=== PATIENT | male | born 1960 | race Caucasian/White ===

== ENCOUNTER 2022-09-11 17:50 | Emergency (ER) | payer BC ==
[~2022-09-11] VITALS: Ht 180.3 cm; Wt 58.9 kg
[2022-09-11 18:22] LABS: BASOPHILS % (AUTO) 0 % (0-10); EOSINOPHILS # (AUTO) 0.1 10^3/uL (0.0-0.3); EOSINOPHILS % (AUTO) 1 % (0-10); HEMATOCRIT 43 % (40-54); HEMOGLOBIN 16.3 g/dL (13.3-17.7); LYMPHOCYTES # (AUTO) 2.6 10^3/uL (1.0-4.0); LYMPHOCYTES % (AUTO) 22 % (12-44); MEAN CORPUSCULAR HEMOGLOBIN 37 pg (25-34); MEAN CORPUSCULAR HGB CONC 38 g/dL (32-36); MEAN CORPUSCULAR VOLUME 97 fL (80-99); MEAN PLATELET VOLUME 10.2 fL (9.0-12.2); MONOCYTES % (AUTO) 8 % (0-12); NEUTROPHILS # (AUTO) 8.3 10^3/uL (1.8-7.8); NEUTROPHILS % (AUTO) 69 % (42-75); PLATELET COUNT 289 10^3/uL (130-400); WHITE BLOOD COUNT 12.1 10^3/uL (4.3-11.0)
[2022-09-11 18:29] LABS: INR 0.9 (0.8-1.4); PROTHROMBIN TIME PATIENT 12.6 SEC (12.2-14.7)
[2022-09-11] MEDS ORDERED: LIDOCAINE 1% INJ 20 ML VIAL INJ ONE (18:30)
[2022-09-11] MEDS ORDERED: TETANUS,DIPTH,PERTUSS P/F (BOOSTRIX) 0.5 ML VIAL IM ONE (18:30)
[2022-09-11] MEDS ORDERED: ceFAZolin INJECTION 1,000 MG VIAL IV ONE (18:30)
[2022-09-11 18:35] LABS: ALANINE AMINOTRANSFERASE 39 U/L (0-55); ALBUMIN 4.7 GM/DL (3.2-4.5); ALKALINE PHOSPHATASE 76 U/L (40-136); BILIRUBIN,TOTAL 0.5 MG/DL (0.1-1.0); BUN/CREATININE RATIO 18; CALCIUM 9.4 MG/DL (8.5-10.1); CARBON DIOXIDE 28 MMOL/L (21-32); CHLORIDE 101 MMOL/L (98-107); CREATININE SERUM 0.73 MG/DL (0.60-1.30); GFR ESTIMATED 105; GLUCOSE 81 MG/DL (70-105); POTASSIUM 4.4 MMOL/L (3.6-5.0); SODIUM 140 MMOL/L (135-145); TOTAL PROTEIN 7.4 GM/DL (6.4-8.2)
[2022-09-11] MEDS ORDERED: fentaNYL INJ 100 MCG/2 ML AMP IVP ONE (18:45)
[2022-09-11] MEDS ORDERED: MUPIROCIN 2% OINT 22 GM (BACTROBAN) TUBE NSEACH STA (18:54)
--- NOTE | 2022-09-11 19:10 | Diagnostic Imaging Report ---
EXAMINATION: Left hand radiographs. EXAM DATE: 09/11/2022 7:06 PM COMPARISON: None available. HISTORY: Left hip pain after finger amputation. TECHNIQUE: 3 views. FINDINGS: There is amputation of the distal second digit involving the majority of the middle phalanx and the entirety of the distal phalanx. There is a small osseous fragment within the remaining soft tissues distally. The interphalangeal joint is preserved proximally. No other acute fracture, dislocation or destructive osseous process. IMPRESSION: Acute amputation of the distal left second finger involving the majority of the middle and the entirety of the distal second phalanx. There is a small osseous fragment within the soft tissues distally. Dictated by: Dictated on workstation # [id number]
--- NOTE | 2022-09-11 19:37 | ED Upper Extremity ---
General Chief Complaint: Trauma-Non Activation Stated Complaint: L INDEX LAC Nursing Triage Note: Patient presents to the ED with c/o left index finger injury. Reports that he was cutting wood with a table saw when the wood kicked back and then he is unsure how his finger came into contact with the saw. States that he has been drinking and admits to consuming 6 to 7 beers throught the day. Distal amputation of left index finger noted. Source: patient, family Exam Limitations: no limitations History of Present Illness Date Seen by Provider: Sep 11, 2022 Time Seen by Provider: 18:00 Initial Comments This 61-year-old male presents to the emergency room with amputation of the left index finger from a table saw accident. He is intoxicated and admits to drinking several beers today. He reports he typically drinks about 9 beers daily after work. Bleeding is controlled. There is nearly complete amputation of the middle and distal phalanx on the left index finger. Patient denies any other injury. He does not bring the amputated tissues in with him. He presumes his pet chicken in the shop ate it. Location Injury Occurred: Home Onset: just prior to arrival Allergies and Home Medications Allergies Coded Allergies: No Known Drug Allergies (Unverified , 09/11/22) Patient Home Medication List Home Medication List Reviewed: Yes Oxycodone HCl/Acetaminophen (Percocet 5-325 mg Tablet) 1 Each Tablet, 1 TAB PO Q4H PRN for PAIN-BREAKTHROUGH Prescribed by: SOFÍA ROSAS on 09/11/221940 Sulfamethoxazole/Trimethoprim (Bactrim Ds Tablet) 1 Each Tablet, 1 EACH PO BID Prescribed by: SOFÍA ROSAS on 09/11/221940 Review of Systems Constitutional: see HPI (Intoxicated but alert and oriented) EENTM: no symptoms reported Respiratory: no symptoms reported Cardiovascular: no symptoms reported Gastrointestinal: no symptoms reported Genitourinary: no symptoms reported Musculoskeletal: see HPI Skin: see HPI Psychiatric/Neurological: See HPI Past Vezdykr-Pwwfqh-Lsrwdf Hx Patient Social History Tobacco Use?: Yes Smokeless Tobacco Frequency: Current Everyday User Substance use?: No Alcohol Use?: Yes Alcohol type: Beer Alcohol Frequency: Daily Pt feels they are or have been: No Immunizations Up To Date First/Initial COVID19 Vaccinat: Denies Past Medical History Surgery/Hospitalization HX: Bipolar Surgeries: No Respiratory: No Cardiac: No Neurological: Yes TIA Genitourinary: No Gastrointestinal: No Musculoskeletal: No Endocrine: No HEENT: No Cancer: No Psychosocial: Yes (Alcohol dependence) Bipolar Physical Exam Vital Signs Vital Signs - First Documented 09/11/22 17:52 Temp 35.7 Pulse 71 Resp 16 B/P (MAP) 169/98 (121) Pulse Ox 100 O2 Delivery Room Air Capillary Refill : Less Than 3 Seconds Height, Weight, BMI Height: '" Weight: lbs. oz. kg; 18.00 BMI Method: General Appearance: WD/WN, mild distress, thin, other (Intoxicated) HEENT: normal ENT inspection Neck: normal inspection Cardiovascular: regular rate, rhythm, no edema, no murmur Respiratory: lungs clear, normal breath sounds, no respiratory distress Elbow/Forearm: normal inspection, no evidence of injury, normal ROM, Left Wrist: Yes normal inspection, Yes non-tender, Yes no evidence of injury, Yes normal ROM Hand: normal ROM, Left (Amputation of the left index finger at the PIP joint with flap of tissue remnant remaining. Bleeding is minimal. Bone is exposed.) Neurologic/Psychiatric: no motor/sensory deficits, alert, oriented x 3, other (Intoxicated) Skin: normal color, warm/dry, other (Amputation as above) Procedures/Interventions Wound Location: Upper Extremities Other Wound Location Traumatic amputation of left index finger at the PIP joint Progress Base of the left index finger was cleaned with chlorhexidine wipes. Digital block was placed with approximately 4 mL lidocaine. Wound was sprayed down with lidocaine and local injection of approximately 3 mL was provided around the wound. Wound was then irrigated and cleaned with saline with chlorhexidine. Wound was then carefully dressed with Xeroform coated in Bactroban. This was then covered with gauze roll. There was no attempt at closure of the wound as patient is going to surgery in the morning. Progress/Results/Core Measures Results/Orders Lab Results Laboratory Tests Test 09/11/22 18:18 Range/Units White Blood Count 12.1 H 4.3-11.0 10^3/uL Red Blood Count 4.40 4.30-5.52 10^6/uL Hemoglobin 16.3 13.3-17.7 g/dL Hematocrit 43 40-54 % Mean Corpuscular Volume 97 80-99 fL Mean Corpuscular Hemoglobin 37 H 25-34 pg Mean Corpuscular Hemoglobin Concent 38 H 32-36 g/dL Red Cell Distribution Width 12.7 10.0-14.5 % Platelet Count 289 130-400 10^3/uL Mean Platelet Volume 10.2 9.0-12.2 fL Immature Granulocyte % (Auto) 0 % Neutrophils (%) (Auto) 69 42-75 % Lymphocytes (%) (Auto) 22 12-44 % Monocytes (%) (Auto) 8 0-12 % Eosinophils (%) (Auto) 1 0-10 % Basophils (%) (Auto) 0 0-10 % Neutrophils # (Auto) 8.3 H 1.8-7.8 10^3/uL Lymphocytes # (Auto) 2.6 1.0-4.0 10^3/uL Monocytes # (Auto) 1.0 0.0-1.0 10^3/uL Eosinophils # (Auto) 0.1 0.0-0.3 10^3/uL Basophils # (Auto) 0.0 0.0-0.1 10^3/uL Immature Granulocyte # (Auto) 0.0 0.0-0.1 10^3/uL Prothrombin Time 12.6 12.2-14.7 SEC INR Comment 0.9 0.8-1.4 Activated Partial Thromboplast Time 30 24-35 SEC Sodium Level 140 135-145 MMOL/L Potassium Level 4.4 3.6-5.0 MMOL/L Chloride Level 101 98-107 MMOL/L Carbon Dioxide Level 28 21-32 MMOL/L Anion Gap 11 5-14 MMOL/L Blood Urea Nitrogen 13 7-18 MG/DL Creatinine 0.73 0.60-1.30 MG/DL Estimat Glomerular Filtration Rate 105 BUN/Creatinine Ratio 18 Glucose Level 81 70-105 MG/DL Calcium Level 9.4 8.5-10.1 MG/DL Corrected Calcium 8.5-10.1 MG/DL Total Bilirubin 0.5 0.1-1.0 MG/DL Aspartate Amino Transf (AST/SGOT) 38 H 5-34 U/L Alanine Aminotransferase (ALT/SGPT) 39 0-55 U/L Alkaline Phosphatase 76 40-136 U/L Total Protein 7.4 6.4-8.2 GM/DL Albumin 4.7 H 3.2-4.5 GM/DL Serum Alcohol 202 H <10 MG/DL My Orders Orders - SOFÍA VERA MD Hand 3 View Left (09/11/22 18:16) Alcohol (09/11/22 18:16) Cbc With Automated Diff (09/11/22 18:16) Comprehensive Metabolic Panel (09/11/22 18:16) Protime With Inr (09/11/22 18:16) Partial Thromboplastin Time (09/11/22 18:16) Ed Iv/Invasive Line Start (09/11/22 18:16) Dipht,Pertuss(Acell),Tet Adult (Boostrix (09/11/22 18:30) Lidocaine 1% Inj 20 Ml (Xylocaine 1% Inj (09/11/22 18:30) Cefazolin Injection (Ancef Injection) (09/11/22 18:30) Fentanyl Inj (Sublimaze Injection) (09/11/22 18:45) Mupirocin Ointment (Bactroban Ointment (09/11/22 18:54) Sulfamethoxazole/Trimet Ds Tab (Bactrim (09/11/22 19:45) Rx-Oxycodone/Apap 5-325 Mg (Rx-Percocet (09/11/22 19:45) Rx-Lorazepam (Rx-Ativan) (09/11/22 19:42) Medications Given in ED Current Medications Medications Dose Ordered Sig/Eusebia Route Start Time Stop Time Status Last Admin Dose Admin Cefazolin Sodium 1,000 mg ONCE ONCE IV 09/11/22 18:30 09/11/22 18:31 DC 09/11/22 18:45 1,000 MG Diphtheria/ Tetanus/Acell Pertussis 0.5 ml ONCE ONCE IM 09/11/22 18:30 09/11/22 18:31 DC 09/11/22 18:53 0.5 ML Fentanyl Citrate 75 mcg ONCE ONCE IVP 09/11/22 18:45 09/11/22 18:46 DC 09/11/22 18:45 75 MCG Lidocaine HCl 20 ml ONCE ONCE INJ 09/11/22 18:30 09/11/22 18:31 DC 09/11/22 18:30 20 ML Oxycodone/ Acetaminophen 1 ea Q4H PRN PO 09/11/22 19:45 09/11/22 19:56 DC 09/11/22 19:51 1 EA Trimethoprim/ Sulfamethoxazole 1 ea ONCE ONCE PO 09/11/22 19:45 09/11/22 19:46 DC 09/11/22 19:51 1 EA Vital Signs/I&O 09/11/22 09/11/22 17:52 19:56 Temp 35.7 Pulse 71 76 Resp 16 16 B/P (MAP) 169/98 (121) 143/92 Pulse Ox 100 99 O2 Delivery Room Air Room Air Blood Pressure Mean: 121 Progress Progress Note : Progress Note Patient's pain was treated with fentanyl. Further anesthesia was provided with digital block and a localized injection. Wound was cleaned and dressed. Bleeding was controlled. I discussed the case with Dr. Romero who would like to take the patient to surgery in the morning. Tetanus booster was administered. Antibiotic prophylaxis was provided with Ancef 1 g IV and Bactrim orally. Percocet was dispensed for pain control through the night. Ativan was dispensed to control any withdrawal symptoms he may have since he will not be able to eat or drink in preparation for the surgery. See discharge instructions for further discussion. Diagnostic Imaging Diagonstic Imaging: Xray Plain Films/CT/US/NM/MRI: hand Comments Hand x-ray viewed by me and report reviewed. See report below: NAME: PARKER [facility] REC#: [id number] PT STATUS: REG ER : 1960 PHYSICIAN: SOFÍA VERA MD ADMIT DATE: 09/11/22/ER FS Signed Date of Exam:09/11/22 HAND 3 VIEW LEFT EXAMINATION: Left hand radiographs. EXAM DATE: 09/11/2022 7:06 PM COMPARISON: None available. HISTORY: Left hip pain after finger amputation. TECHNIQUE: 3 views. FINDINGS: There is amputation of the distal second digit involving the majority of the middle phalanx and the entirety of the distal phalanx. There is a small osseous fragment within the remaining soft tissues distally. The interphalangeal joint is preserved proximally. No other acute fracture, dislocation or destructive osseous process. IMPRESSION: Acute amputation of the distal left second finger involving the majority of the middle and the entirety of the distal second phalanx. There is a small osseous fragment within the soft tissues distally. Dictated by: Dictated on workstation # [id number] Dict: 09/11/221906 Trans: 09/11/221913 [facility] [id number] Interpreted by: SUMEET PRICE DO Electronically signed by: SUMEET PRICE DO 09/11/221913 Departure Impression Primary Impression: Traumatic amputation of finger Qualified Codes: S68.119A - Complete traumatic metacarpophalangeal amputation of unspecified finger, initial encounter Additional Impression: Alcohol intoxication Qualified Codes: F10.929 - Alcohol use, unspecified with intoxication, unspecified Disposition: 01 HOME, SELF-CARE Condition: Improved Departure-Patient Inst. Decision time for Depature: 19:39 Referrals: AZEEM PATEL MD (PCP/Family) Primary Care Physician Patient Instructions: ALCOHOL AND SUBSTANCE ABUSE, Alcohol Intoxication ED, Amputation of the Finger or Fingertip (DC) Add. Discharge Instructions: Keep your left hand clean and dry. Keep the dressing on until it is removed for surgery. Elevate to the level of your heart or slightly above to help prevent bleeding. Expect some oozing of blood to continue. This may bleed through the dressing. If it it has bled completely through the dressing such that there is saturation or blood dripping off the dressing, return to the emergency room for reevaluation. Present to the emergency room in [place] tomorrow morning at approximately 8:[address] Romero is the general surgeon who will be performing your surgery. Do not eat or drink anything after midnight. If you must take your pain medication after midnight, do so with as little water as possible. The Ativan (lorazepam) has been provided to prevent alcohol withdraw. If you are experiencing agitation, tremors, hallucinations, or other symptoms of alcohol withdraw, take the Ativan every 4 hours as needed. Between midnight and surgery, you may dissolve the tablet by placing it in your cheek and rubbing. After surgery you may take ibuprofen up to 600 mg every 6 hours as needed for primary pain control. Add to the Percocet as prescribed for pain not controlled by ibuprofen. Complete the antibiotics as prescribed. Do not operate any machinery, power tools, vehicles, or sharp and tools while under the influence of alcohol. Work toward quitting alcohol completely. A lis susan of the help of support services such as alcoholics anonymous (AA), your [facility] mental health office, your primary care physician, etc. Do not abruptly stop alcohol consumption as this may cause dangerous with or life-threatening withdrawals including seizures. Gradually taper down your alcohol consumption to prevent withdraw or use medications provided by your physician to prevent withdrawal. See resources attached. All discharge instructions reviewed with patient and/or family. Voiced understanding. Scripts Oxycodone HCl/Acetaminophen (Percocet 5-325 mg Tablet) 1 Each Tablet 1 TAB PO Q4H PRN for PAIN-BREAKTHROUGH MDD 6 TABS, #20 TAB Prov: SOFÍA VERA MD 09/11/22 Sulfamethoxazole/Trimethoprim (Bactrim Ds Tablet) 1 Each Tablet 1 EACH PO BID, #14 TAB Prov: SOFÍA VERA MD 09/11/22 Copy Copies To 1: NESS ROMERO JOSHUA T MD Sep 11, 2022 19:37
[2022-09-11] MEDS ORDERED: OXYC1TAB87 PO (19:41)
[2022-09-11] MEDS ORDERED: SULF1TAB38 PO (19:41)
[2022-09-11] MEDS ORDERED: RX-LORAZEPAM (ATIVAN) 0.5 MG TAB PPK#4 PO STA (19:42)
[2022-09-11] MEDS ORDERED: TRIM/SULFAMETH 160/800 (SEPTRA DS) TAB PO ONE (19:45)
[2022-09-11] MEDS ORDERED: RX-OXYCODONE/APAP 5-325 MG #4 TAB PK PO PRN (19:45)
[2022-09-11 19:56] VITALS: BP 143/92
[2022-09-12] MEDS ORDERED: ESCI-2 PO (08:54)
[2022-09-12] MEDS ORDERED: MIRT-69 PO (08:54)
[2022-09-12] MEDS ORDERED: DIVA-76 PO (08:55)
== END 2022-09-11 19:53 | disposition home or self-care (01) ==
LOC: ER FS 17:52
DX: S68.111A Complete traumatic metacarpophalangeal amputation of left index finger, initial encounter (principal); F10.229 Alcohol dependence with intoxication, unspecified; F17.200 Nicotine dependence, unspecified, uncomplicated; Y90.7 Blood alcohol level of 200-239 mg/100 ml; Z28.310 Unvaccinated for COVID-19; W27.0XXA Contact with workbench tool, initial encounter; Y93.89 Activity, other specified
CPT/HCPCS: 36415; 73130; 80053; 85025; 85610; 85730; 99283; G0480; 80320; 90715

== ENCOUNTER 2022-09-12 08:18 | Day surgery (SDC) | payer BC ==
[~2022-09-12] VITALS: Ht 177.8 cm; Wt 58.2 kg
[2022-09-12] VITALS (9 sets, daily range): BP systolic 106–164; BP diastolic 90–108
[~2022-09-12 08:18] MED LIST: OXYC1TAB87 PO; SULF1TAB38 PO
[2022-09-12] MEDS ORDERED: BUPIVACAINE 0.25% 30 ML (SENSORCAINE) VIAL ONE (08:51)
[2022-09-12] MEDS ORDERED: MIRT-69 PO (08:54)
[2022-09-12] MEDS ORDERED: ESCI-2 PO (08:54)
[2022-09-12] MEDS ORDERED: DIVA-76 PO (08:55)
[2022-09-12] MEDS ORDERED: LACTATED RINGERS 1,000 ML IV PRN (09:00)
--- NOTE | 2022-09-12 09:06 | History & Physical-Surgical ---
History of Present Illness History of Present Illness Patient Consulted On(stanley/time) 09/12/22 09:01 Date Seen by Provider: Sep 12, 2022 Time Seen by Provider: 09:01 History of Present Illness Dexter is a 61y M who presented to the ED last night with amputation of the left index finger after a table saw accident. He admitted to drinking several beers at that time. The bleeding was controlled in the ED and lidocaine block was performed. He was not able to recover the amputated tissues. Today he is accompanied by his and reports pain at a 2/10 in severity of the left index finger. Denies CP, SOB, nausea, vomiting, STRATTON, abdominal pain. He does note having a cough for the past 2 weeks that produces clear phlegm but denies other viral symptoms. Denies having had anything to eat since yesterday, he has taken sips of water to take his daily medication. Last pain med was around 7 am this morning. 61 year old male using a table saw last night. Cut left index finger. Could not find the finger last night. Was intoxicated at the time. Bleeding was able to be controlled. Washed out and bandaged so could have surgery today. Patient pain controlled. Denies any other complaints. Denies n/v fever sweats chills shortness of breath or chest pain. Allergies and Home Medications Allergies Coded Allergies: morphine (Verified Allergy, Intermediate, 09/12/22) Patient Home Medication List Home Medication List Reviewed: Yes Divalproex Sodium (Divalproex Sodium) 500 Mg Tablet.dr, 500 MG PO DAILY Prescribed by: CARITO MULLIGAN on 09/12/22854 Last Action: New Order Escitalopram Oxalate (Escitalopram Oxalate) 10 Mg Tablet, 30 MG PO DAILY Prescribed by: CARITO MULLIGAN on 09/12/22853 Last Action: New Order Mirtazapine (Mirtazapine) 30 Mg Tablet, 15 MG PO HS Prescribed by: CARITO MULLIGAN on 09/12/22853 Last Action: New Order Oxycodone HCl/Acetaminophen (Percocet 5-325 mg Tablet) 1 Each Tablet, 1 TAB PO Q4H PRN for PAIN-BREAKTHROUGH Prescribed by: SOFÍA ROSAS on 09/11/221940 Sulfamethoxazole/Trimethoprim (Bactrim Ds Tablet) 1 Each Tablet, 1 EACH PO BID Prescribed by: SOFÍA ROSAS on 09/11/221940 Past Ctqqgsl-Pcytpl-Wegbmm Hx Patient Social History Smoking Status: Current Everyday Smoker Type Used: Cigarettes Alcohol Use?: Yes Surgeries History of Surgeries: Yes (hemorrhoidectomy) Respiratory History of Respiratory Disorde: No Cardiovascular History of Cardiac Disorders: No Neurological History of Neurological Disord: No Genitourinary History of Genitourinary Disor: No Gastrointestinal History of Gastrointestinal Di: Yes Gastrointestinal Disorders: Hemorrhoids Musculoskeletal History of Musculoskeletal Dis: No Endocrine History of Endocrine Disorders: No HEENT History of HEENT Disorders: No Cancer History of Cancer: No Psychosocial History of Psychiatric Problem: Yes Behavioral Health Disorders: Bipolar Integumentary History of Skin or Integumenta: No Reviewed Nursing Assessment Reviewed/Agree w Nursing PMH: Yes Family Medical History Significant Family History: No Pertinent Family Hx Review of Systems-General Constitutional: No chills, No diaphoresis EENTM: hearing loss (uses hearing aid, not currently wearing); No ear discharge Respiratory: cough; No dyspnea on exertion Cardiovascular: No chest pain, No edema Gastrointestinal: No abdominal pain, No nausea, No vomiting Genitourinary: No decreased output, No discharge Musculoskeletal: No back pain, No gout; other (left index finger pain) Skin: No change in color, No change in hair/nails Psychiatric/Neurological: Denies Anxiety, Denies Depressed All Other Systems Reviewed Negative Unless Noted: Yes (Negative excepted noted.) Physical Exam-General Problems Physical Exam Vital Signs Vital Signs - First Documented 09/12/22 08:40 Temp 36.7 Pulse 77 Resp 18 B/P (MAP) 163/90 (114) Pulse Ox 98 O2 Delivery Room Air Capillary Refill : General Appearance: WD/WN, no apparent distress, thin HEENT: PERRL/EOMI, normal ENT inspection Neck: non-tender, supple Respiratory: chest non-tender, no respiratory distress, no accessory muscle use Cardiovascular: regular rate, rhythm, no JVD Peripheral Pulses: 2+ Radial Pulses (R) (L brachial pulse 2+, unable to assess L radial d/t bandaged) Gastrointestinal: non tender, soft Rectal: deferred Back: normal inspection, no CVA tenderness Extremities: non-tender, no pedal edema, other (left index finger with distal amputation) Neurologic/Psychiatric: alert, oriented x 3 Skin: normal color, warm/dry, other (left index finger with skin flap from amputation.) Lymphatic: no adenopathy Data Review Radiology [facility], [place], [place] NAME: DEXTER [facility] REC#: [id number] PT STATUS: REG ER : 1960 PHYSICIAN: SOFÍA VERA MD ADMIT DATE: 09/11/22/ER FS Signed Date of Exam:09/11/22 HAND 3 VIEW LEFT EXAMINATION: Left hand radiographs. EXAM DATE: 09/11/2022 7:06 PM COMPARISON: None available. HISTORY: Left hip pain after finger amputation. TECHNIQUE: 3 views. FINDINGS: There is amputation of the distal second digit involving the majority of the middle phalanx and the entirety of the distal phalanx. There is a small osseous fragment within the remaining soft tissues distally. The interphalangeal joint is preserved proximally. No other acute fracture, dislocation or destructive osseous process. IMPRESSION: Acute amputation of the distal left second finger involving the majority of the middle and the entirety of the distal second phalanx. There is a small osseous fragment within the soft tissues distally. Dictated by: Dictated on workstation # [id number] Dict: 09/11/221906 Trans: 09/11/221913 [facility] [id number] Interpreted by: SUMEET PRICE DO Electronically signed by: SUMEET PRICE DO 09/11/221913 Assessment/Plan Assessment/Plan Admission Diagonsis Traumatic amputation of left index finger above the MIP joint ETOH abuse- daily 8-9 beers Bipolar. Admission Status: Other (Same Day Surgery) Assessment/Plan traumatic amputation of left index finger above the MIP joint bipolar disorder alcohol dependence xray with distal left 2nd finger, majority of the middle and entire distal phalanx with a small osseous fragment within the soft tissue distally to surgery this morning pt consented. discussed risks and benefits of procedure and pt agrees traumatic amputation of left index finger above the MIP joint bipolar disorder alcohol dependence xray with distal left 2nd finger, majority of the middle and entire distal phalanx with a small osseous fragment within the soft tissue distally to surgery this morning for partial amputation left index finger pt consented. discussed risks and benefits of procedure and pt agrees Supervisory-Addendum Brief Verification & Attestation Participated in pt care: history, MDM, physical Personally performed: exam, history, MDM, supervision of care Care discussed with: Medical Student Procedures: n/a Results interpretation: Verified all documentation Verification and Attestation of Medical Student E/M Service A medical student performed and documented this service in my presence. I reviewed and verified all information documented by the medical student and made modifications to such information, when appropriate. I personally performed the physical exam and medical decision making. Ness Romero, Sep 12, 2022,10:03 ARELIS UNDERWOOD Sep 12, 2022 09:06 NESS ROMERO DO Sep 12, 2022 10:02
[2022-09-12] MEDS ORDERED: BUPIVACAINE 0.25% 30 ML (SENSORCAINE) VIAL INJ ONE (09:16)
[2022-09-12] MEDS ORDERED: ceFAZolin INJECTION 1,000 MG ONE (09:31)
[2022-09-12] MEDS ORDERED: NS (IVPB) 50 ML ONE (09:32)
[2022-09-12] MEDS ORDERED: MIDAZOLAM 2 MG/2 ML (VERSED) VIAL ONE (09:56)
[2022-09-12] MEDS ORDERED: fentaNYL INJ 100 MCG/2 ML AMP ONE (09:56)
[2022-09-12] MEDS ORDERED: ceFAZolin INJECTION 1,000 MG in NS (IVPB) 50 ML IV ONE (10:00)
[2022-09-12] MEDS ORDERED: ONDANSETRON 4 MG/2 ML (SDV) Z0FRAN ONE (10:19)
[2022-09-12] MEDS ORDERED: LIDOCAINE PF 2% 5 ML (XYLOCAINE) VIAL ONE (10:19)
[2022-09-12] MEDS ORDERED: proPOfol 200 MG/20 ML (DIPRIVAN) VIAL IV ONE (10:19)
[2022-09-12] MEDS ORDERED: NEOSTIGMINE (BLOXIVERZ ) 1 MG/1ML 10 ML VIAL ONE (10:36)
[2022-09-12] MEDS ORDERED: PHENYLEPHRINE 100 MCG/ML 10 ML (ANESTHESIA) SYR ONE (10:36)
[2022-09-12] MEDS ORDERED: SEVOFLURANE (ULTANE) 15 ML INHAL SOLN ONE (10:48)
--- NOTE | 2022-09-12 11:37 | Discharge Inst-Simple/Standard ---
Discharge Inst-Standard Patient Instructions/Follow Up Plan of Care/Instructions/FU: Dr. Kathleen-Wednesday to reevaluate the left finger and dressing change. Activity as Tolerated: No Discharge Diet: Regular Diet Other Inst to Patient Follow up Appt: Make appointment for 09/14/[address] Kathleen Instructions: No strenuous activity. May shower in 24 hours, no tub bath or soaking. Use incentive spirometer at home as directed. No Smoking Skin/Wound Care: keep bandage clean and dry, this will be changed on Wednesday. Symptoms to Report: Appetite Changes, Extremity Discoloration, Numbness/Tingling, Swelling Increased, Bleeding Excessive, Eyesight Changes, Pain Increased, Urine Color Change, Constipation(Persistent), Fever over 101 degree F, Pain/Pressure in chest, Urinating Difficulty, Cough Up/Vomit Blood, Heart Beat Irreg/Pounding, Pain/Pressure in jaw, Vaginal Bleeding Increase, Cramps in feet or legs, Lightheadedness, Pain/Pressure in shoulder, Diarrhea(Persistent), Memory Changes Suddenly, Questions/Concerns, Weight gain consecutive days, Dizziness/Fainting, Nausea/Vomiting, Shortness of Breath, Weight gain over 2 pounds If questions or concerns contact your physician Or seek help at emergency department. NESS KATHLEEN DO Sep 12, 2022 11:37
--- NOTE | 2022-09-12 12:50 | Anesthesia-General Post-Op ---
General Patient Condition Mental Status/LOC: Same as Preop Cardiovascular: Satisfactory Nausea/Vomiting: Absent Respiratory: Satisfactory Pain: Controlled Complications: Absent Post Op Complications Complications None Follow Up Care/Instructions Patient Instructions None needed. Anesthesia/Patient Condition Patient Condition Patient is doing well, no complaints, stable vital signs, no apparent adverse anesthesia problems. No complications reported per nursing. TRISTIAN MORALES CRNA Sep 12, 2022 12:50
--- NOTE | 2022-09-12 22:10 | OPERATIVE REPORT ---
DATE OF SERVICE: 09/12/2022 PREOPERATIVE DIAGNOSIS: Traumatic amputation of left index finger. POSTOPERATIVE DIAGNOSIS: Traumatic amputation of left index finger. PROCEDURE: Left finger block and partial amputation of left index finger proximal to the PIP joint. SURGEON: Dr. Kathleen. TYPE OF ANESTHESIA: General. ESTIMATED BLOOD LOSS: Minimal. COMPLICATIONS: None. INDICATIONS: The patient is a 61-year-old male who was intoxicated using a table saw when he traumatically injured his left index finger, amputated it just distal to the PIP joint. He was seen in the Emergency Department and arranged for surgery today. The patient and family understand risks and benefits of procedure and wishes to proceed. Consent was on chart. DESCRIPTION OF PROCEDURE: The patient was taken to the operating suite, prepped and draped in sterile fashion. Timeout was performed. Left index digital block was performed injecting 1% Marcaine at the medial and lateral aspect of the base of the finger. Once anesthetic effect was placed, fishmouth incision was made around the finger just proximal to the PIP joint of the left index finger. Once skin flaps were created, a bone saw was then used to transect the bone. This was then filed smoothly for rounded edges. The wound was then irrigated. Hemostasis was achieved. The skin was then closed using 3-0 Prolene in simple interrupted fashion. The area was washed and dried and sterile bandage was applied. The patient tolerated the procedure well without complications, taken to recovery room in stable condition. RECOMMENDATIONS: The patient will follow up in the office on Wednesday to have a dressing change. Any issues before that will be seen at that time. Job ID: [id number] DocumentID: [id number] Dictated Date: 09/12/2022 12:02:40 [employer] Date: 09/12/2022 22:08:00 Dictated By: NESS KATHLEEN DO
== END 2022-09-12 13:07 | disposition home or self-care (01) ==
LOC: SDC 08:18 → 4TH 08:18 → SDC 13:07
PROVIDERS: ATTEND Surgery
DX: S68.621A Partial traumatic transphalangeal amputation of left index finger, initial encounter (principal); F17.210 Nicotine dependence, cigarettes, uncomplicated; F31.9 Bipolar disorder, unspecified; F10.20 Alcohol dependence, uncomplicated; X58.XXXA Exposure to other specified factors, initial encounter
CPT/HCPCS: 87081

== ENCOUNTER → 2022-10-13 | Outpatient (CLI) | payer BC ==
[~2022-10-13] MED LIST changes: +DIVA-76 PO; +ESCI-2 PO; +MIRT-69 PO
--- NOTE | 2022-10-13 14:39 | Diagnostic Imaging Report ---
INDICATION: Right rib pain. FINDINGS: 4 views. PA chest show the lungs to be well-aerated and clear. The heart is not enlarged. No pneumothorax or pleural effusion. 3 views of the right ribs show no fractures. No blastic or lytic lesion. IMPRESSION: Normal PA chest and right RIBS. Dictated by: Dictated on workstation # [id number]
== END ==
LOC: RAD FS 10:47
DX: R07.81 Pleurodynia (principal)
CPT/HCPCS: 71101